=== PATIENT | male | born 1935 | race Caucasian/White ===

== ENCOUNTER → 2017-10-19 | Outpatient (CLI) | payer MEDICARE, BC ==
[~2017-10-19] MED LIST: ASPIR-LOW81 MG PO; D3 PO; FISH OIL PO; KEFLEX500 MG PO; LIPITOR20 MG PO; METOPROLOL TART25 MG PO; PROBIOTIC PO; RAPAFLO8 MG PO; VITAMIN B12 PO; VITAMIN C PO
--- NOTE | 2017-10-19 13:47 | Diagnostic Imaging Report ---
PROCEDURE: CT ABDOMEN AND PELVIS WITHOUT CONTRAST TECHNIQUE: The abdomen and pelvis were scanned utilizing a multidetector helical scanner from the diaphragm to the lesser trochanter after the oral administration of water. No intravenous contrast was administered per renal stone protocol. Coronal and sagittal multiplanar reformations were obtained. COMPARISON: 02/05/2016 INDICATIONS: CALCULUS OF KIDNEY FINDINGS: ABSENCE OF INTRAVENOUS CONTRAST DECREASES SENSITIVITY FOR DETECTION OF FOCAL LESIONS AND VASCULAR PATHOLOGY. LOWER THORAX: Unchanged reticular and fibrocalcific changes in the lung bases left greater than right. No pleural or pericardial effusion.. HEPATOBILIARY: Stable small cysts in hepatic segment 3, 8, and 7 with additional subcentimeter hypoattenuating lesions scattered throughout the liver, too small to characterize but statistically likely to also represent small cysts. 1.7 cm simple cyst in segment 6 is also unchanged. No intrahepatic biliary ductal dilatation. The gallbladder is unremarkable. SPLEEN: Subcentimeter hypoattenuating lesion in the spleen and is unchanged and may represent a small cyst. PANCREAS: No focal masses or ductal dilatation. ADRENALS: No adrenal nodules. KIDNEYS/URETERS: No renal, ureteral, or bladder calculi are appreciated. Nonspecific perinephric fat stranding, right greater than left, unchanged. No hydronephrosis. No gross renal mass lesion. PELVIC ORGANS/BLADDER: The urinary bladder is unremarkable. Coarse prostatic calcifications. PERITONEUM / RETROPERITONEUM: No ascites. No pneumoperitoneum. LYMPH NODES: No pelvic sidewall, retroperitoneal, or mesenteric lymphadenopathy. VESSELS: Atherosclerotic calcification of the abdominal aorta and major branch vessels without aneurysmal dilatation. Evaluation is otherwise limited in the absence of intravenous contrast. GI TRACT: The large bowel shows no evidence of distention or wall thickening. There are a few diverticula scattered along the descending and sigmoid colon without wall thickening or inflammatory change. The appendix is normal. Prominence of the gastric rugal folds is likely related to underdistention. No small bowel dilatation to suggest obstruction. BONES AND SOFT TISSUES: No osseous destructive lesions. Defect in the left iliac wing is likely a bone graft harvest site. Postsurgical changes of the lower lumbar spine. No focal soft tissue abnormalities. IMPRESSION: No CT evidence of urolithiasis. Previously described punctate nonobstructing right renal calculus is no longer visualized. Large bowel diverticulosis without evidence of diverticulitis. Atherosclerotic vascular disease. Dictated by: Rainer Haynes M.D. on 10/19/2017 at 13:48 Electronically approved by: Rainer Haynes M.D. on 10/19/2017 at 13:48
== END ==
LOC: CT 12:20
PROVIDERS: ATTEND Urology
DX: N20.0 Calculus of kidney (principal)
CPT/HCPCS: 74176

== ENCOUNTER → 2018-04-12 | Outpatient (CLI) | payer MEDICARE, BC ==
--- NOTE | 2018-04-12 12:14 | Diagnostic Imaging Report ---
Exam: KUB. Clinical History: Calculus of kidney Comparison: CT 10/19/2017 Findings: Frontal view of the abdomen demonstrates a nonobstructive bowel gas pattern with moderate retained stool. No definite urinary tract calcifications are seen.No acute bone abnormality. Impression: No definite urinary tract calcifications are seen. Signed by: Dr. Yadiel Douglas M.D. on 04/12/2018 12:11 PM
== END ==
LOC: RAD 11:11
PROVIDERS: ATTEND Urology
DX: N20.0 Calculus of kidney (principal)
CPT/HCPCS: 74018

== ENCOUNTER → 2019-04-08 | Outpatient (CLI) | payer MEDICARE, BC ==
--- NOTE | 2019-04-08 14:31 | Diagnostic Imaging Report ---
EXAMINATION: CHEST 2 VIEWS INDICATION: Shortness of breath COMPARISON: None FINDINGS: LINES/TUBES:None LUNGS:The lungs are well-inflated. No focal consolidation or pulmonary edema. PLEURA:No pleural effusion or pneumothorax. MEDIASTINUM:The cardiomediastinal silhouette appears normal in size and shape. Atherosclerotic calcifications of the thoracic aorta. BONES/SOFT TISSUES:No acute osseous injury. ABDOMEN:No free air under the diaphragm. IMPRESSION: No focal pneumonia or pulmonary edema. Signed by: Mirella Love MD on 04/08/2019 2:28 PM
== END ==
LOC: RAD 13:44
PROVIDERS: ATTEND Internal Medicine
DX: R06.02 Shortness of breath (principal)
CPT/HCPCS: 71046

== ENCOUNTER 2019-04-09 11:18 | Observation (INO) | payer MEDICARE, BC ==
[~2019-04-09] VITALS: Ht 170.2 cm; Wt 81.6 kg
--- OUTSIDE RECORDS SUMMARY | 2019-04-09 13:23 | XMS REPORT ---
Author Author [facility] Address Unknown Phone Unavailable Care Team Providers Care Materials Engineering Technician Name Role Phone JUDY GUILLEN Unavailable Unavailable HAMPEL, MARIA ELENA Unavailable Unavailable HALE, BRIANNA Unavailable Unavailable Problems This patient has no known problems. Allergies, Adverse Reactions, Alerts This patient has no known allergies or adverse reactions. Medications This patient has no known medications. Results Test Description Test Time Test Comments Text Results Atomic Results Result Comments CHEST 2 VIEWS 2019-04-08 14:26:00 [place] [address] Patient Name: HAYLEY ZULUAGA MR #: [id number] : 1935 Age/Sex: 83/M Req #: [id number] Adm Physician: Ordered by: JUDY GUILLEN MD Report #: [id number] Location: [facility] Room/Bed: Procedure: [id number] DX/CHEST 2 VIEWS Exam Date: 04/08/19 Exam Time: 1421 REPORT STATUS: Signed EXAMINATION: CHEST 2 VIEWS INDICATION: Shortness of breath COMPARISON: None FINDINGS: LINES/TUBES:None LUNGS:The lungs are well-inflated. No focal consolidation or pulmonary edema. PLEURA:No pleural effusion or pneumothorax. MEDIASTINUM:The cardiomediastinal silhouette appears normal in size and shape. Atherosclerotic calcifications of the thoracic aorta. BONES/SOFT TISSUES:No acute osseous injury. ABDOMEN:No free air under the diaphragm. IMPRESSION: No focal pneumonia or pulmonary edema. Signed by: Luigi Christensen MD on 04/08/2019 2:28 PM Dictated By: LUIGI CHRISTENSEN MD 27 Transcribed By: MARCY on 04/08/191427 COPY TO: JUDY GUILLEN MD ABDOMEN-1VIEW (KUB) 2018-04-12 12:08:00 [place] [address] Patient Name: HAYLEY ZULUAGA MR #: [id number] : 1935 Age/Sex: 82/M Req #: [id number] Adm Physician: Ordered by: MARIA ELENA CREWS MD Report #: [id number] Location: [facility] Room/Bed: Procedure: [id number] DX/ABDOMEN-1VIEW (KUB) Exam Date: 04/12/18 Exam Time: 1135 REPORT STATUS: Signed Exam: KUB. Clinical History: Calculus of kidney Comparison: CT 10/19/2017 Findings: Frontal view of the abdomen demonstrates a nonobstructive bowel gas pattern with moderate retained stool. No definite urinary tract calcifications are seen.No acute bone abnormality. Impression: No definite urinary tract calcifications are seen. Signed by: Dr. Yadiel Douglas M.D. on 04/12/2018 12:11 PM Dictated By: YADIEL DOUGLAS MD, MD 121 Transcribed By: MARCY on 04/12/18 121 COPY TO: MARIA ELENA CREWS MD CT ABDOMEN/PELVIS WO [place] [address] Patient Name: HAYLEY ZULUAGA MR #: [id number] : 1935 Age/Sex: 82/M Req #: [id number] [facility] Physician: Ordered by: MARIA ELENA CREWS MD Report #: [id number] Location: CT Room/Bed: Procedure: [id number] CT/CT ABDOMEN/PELVIS WO Exam Date: 10/19/17 Exam Time: 1303 REPORT STATUS: Signed PROCEDURE: CT ABDOMEN AND PELVIS WITHOUT CONTRAST TECHNIQUE: The abdomen and pelvis were scanned utilizing a multidetector helical scanner from the diaphragm to the lesser trochanter after the oral administration of water. No intravenous contrast was administered per renal stone protocol. Coronal and sagittal multiplanar reformations were obtained. COMPARISON: 02/05/2016 INDICATIONS: CALCULUS OF KIDNEY FINDINGS: ABSENCE OF INTRAVENOUS CONTRAST DECREASES SENSITIVITY FOR DETECTION OF FOCAL LESIONS AND VASCULAR PATHOLOGY. LOWER THORAX: Unchanged reticular and fibrocalcific changes in the lung bases left greater than right. No pleural or pericardial effusion.. HEPATOBILIARY: Stable small cysts in hepatic segment 3, 8, and 7 with additional subcentimeter hypoattenuating le sions scattered throughout the liver, too small to characterize but statistically likely to also represent small cysts. 1.7 cm simple cyst in segment 6 is also unchanged. No intrahepatic biliary ductal dilatation. The gallbladder is unremarkable. SPLEEN: Subcentimeter hypoattenuating lesion in the spleen and is unchanged and may represent a small cyst. PANCREAS: No focal masses or ductal dilatation. ADRENALS: No adrenal nodules. KIDNEYS/URETERS: No renal, ureteral, or bladder calculi are appreciated. Nonspecific perinephric fat stranding, right greater than left, unchanged. No hydronephrosis. No gross renal mass lesion. PELVIC ORGANS/BLADDER: The urinary bladder is unremarkable. Coarse prostatic calcifications. PERITONEUM / RETROPERITONEUM: No ascites. No pneumoperitoneum. LYMPH NODES: No pelvic sidewall, retroperitoneal, or mesenteric lymphadenopathy. VESSELS: Atherosclerotic calcification of the abdominal aorta and major branch vessels without aneurysmal dilatation. Evaluation is otherwise limited in the absence of intravenous contrast. GI TRACT: The large bowel shows no evidence of distention or wall thickening. There are a few diverticula scattered along the descending and sigmoid colon without wall thickening or inflammatory change. The appendix is normal. Prominence of the gastric rugal folds is likely related to underdistention. No small bowel dilatation to suggest obstruction. BONES AND SOFT TISSUES: No osseous destructive lesions. Defect in the left iliac wing is likely a bone graft harvest site. Postsurgical changes of the lower lumbar spine. No focal soft tissue abnormalities. IMPRESSION: No CT evidence of urolithiasis. Previously described punctate nonobstructing right renal calculus is no longer visualized. Large bowel diverticulosis without evidence of diverticulitis. Atherosclerotic vascular disease. Dictated by: Patrick Liao M.D. on 10/19/2017 at 13:48 Electronically approved by: Patrick Liao M.D. on 10/19/2017 at 13:48 Dictated By: PATRICK LIAO MD 1348 Transcribed By: JAMEE on 10/19/17 1348 COPY TO: MARIA ELENA CREWS MD MRI BRAIN [place] [address] Patient Name: HAYLEY ZULUAGA MR #: [id number] : 1935 Age/Sex: 81/M Req #: [id number] Adm Physician: Ordered by: BRIANNA HALE MD Report #: [id number] Location: MRI Room/Bed: Procedure: [id number] MRI/MRI BRAIN WOW Exam Date: 05/16/17 Exam Time: 1613 REPORT STATUS: Signed Exam: IAC-brain MRI without and with IV contrast History: Vertigo Comparison studies: None. Technique: Axial DWI and axial T2 FLAIR through the whole brain and axial T1 FLAIR and 3-D T2 with axial, coronal and sagittal reformats through the IACs. Postcontrast axial T1 FS through the whole brain and axial coronal T1 FS through the IACs. Intravenous contrast: 8 FINDINGS: Posterior Fossa: Brainstem: No abnormal signal intensity or enhancement.] Cerebellar Hemispheres: No signal abnormalities . Cerebellopontine angle cisterns: No mass. IACs: Normal nerves VII and VIII. Labyrinths: Grossly normal formation. No abnormal signal intensity or enhancement. Mastoids: No abnormal signal intensity or enhancement. Supratentorial region: Masses: None. Acute or chronic vascular insults: No acute ischemia. A few scattered T2 FLAIR hyperintense foci in the supratentorial white matter are nonspecific but most compatible with chronic small vessel ischemic changes. Ventricles: Normal in size. No hydrocephalus. Basal ganglia and thalami: No signal abnormalities. Extra- axial spaces: No mass or fluid collection. IMPRESSION: 1. Mild supratentorial chronic microvascular ischemic changes. 2. No IAC or labyrinthine abnormalities. Signed by: Dr. Patrick Mcnamara M.D. on 05/16/2017 5:16 PM Dictated By: PATRICK MCNAMARA MD 15 Transcribed By: MARCY on 05/16/171715 COPY TO: BRIANNA HALE MD
--- NOTE | 2019-04-09 13:30 | NUR ---
Patient arrived to the unit at this time via direct admit from Dr. Madrid's office. Patient arrived via wheelchair. Patient oriented to the room. Patient in no distress. Patient expresses no pain. Call parsons within reach. Bed is low and locked. All needs met at this time.
--- NOTE | 2019-04-09 15:22 | Diagnostic Imaging Report ---
EXAMINATION: CHEST SINGLE (PORTABLE) INDICATION: Coronary artery disease COMPARISON: Multiple prior chest radiograph, most recently of 04/08/2019 FINDINGS: LINES/TUBES:None LUNGS:The lungs are well-inflated. No focal consolidation or pulmonary edema. PLEURA:No pleural effusion or pneumothorax. MEDIASTINUM:The cardiomediastinal silhouette appears normal in size and shape. Atherosclerotic calcifications of the thoracic aorta. BONES/SOFT TISSUES:No acute osseous injury. ABDOMEN:No free air under the diaphragm. IMPRESSION: No focal pneumonia or pulmonary edema. Signed by: Mirella Love MD on 04/09/2019 3:19 PM
[2019-04-09 16:00] VITALS: BP 133/60
[2019-04-09 16:09] VITALS: BP 133/60
[2019-04-09 16:22] VITALS: BP 133/60
[2019-04-09 16:32] LABS: LYMPHOCYTES # (AUTO) 0.8 (1.0-3.2); LYMPHOCYTES % 55.8 % (18.0-39.1); MEAN CORPUSCULAR HEMOGLOBIN 39.1 pg (28-32); MEAN CORPUSCULAR VOLUME 115.2 fL (81-99); MONOCYTES # (AUTO) 0.1 (0.2-0.8); MONOCYTES % 7.2 % (4.4-11.3); NEUTROPHILS # (AUTO) 0.5 (2.1-6.9); RED BLOOD COUNT 1.38 x10e6/uL (4.3-5.7); RED CELL DISTRIBUTION WIDTH 17.6 % (11.7-14.4)
[2019-04-09 16:41] LABS: HEMATOCRIT 15.9 % (38.2-49.6); HEMOGLOBIN 5.4 g/dL (14.0-18.0); PLATELET COUNT 15 x10e3/uL (140-360)
--- NOTE | 2019-04-09 16:45 | NUR ---
Dr. Madrid seeing patient at this time. Educated patient on plan of care. Continued home medications. Patient's questions answered. Call parsons within reach.
[2019-04-09 16:48] LABS: ALANINE AMINOTRANSFERASE 13 IU/L (0-55); ALBUMIN 3.3 g/dL (3.5-5.0); ALBUMIN/GLOBULIN RATIO 1.1 (0.8-2.0); ALKALINE PHOSPHATASE 56 IU/L (40-150); ANION GAP 10.8 mmol/L (8-16); BLOOD UREA NITROGEN 16 mg/dL (7-26); BUN/CREATININE RATIO 18 (6-25); CARBON DIOXIDE 24 mmol/L (22-29); CHLORIDE 106 mmol/L (98-107); CREATININE, SERUM 0.87 mg/dL (0.72-1.25); EST GLOMERULAR FILTRATION RATE > 60 ML/MIN (60-); GLUCOSE 112 mg/dL (74-118); POTASSIUM 3.8 mmol/L (3.5-5.1); SODIUM 137 mmol/L (136-145)
[2019-04-09] MEDS ORDERED: SODIUM CHLORIDE 0.9% 250ML 250 ML IV ONE (17:00)
[2019-04-09] MEDS ORDERED: ACETAMINOPHEN 325 MG TAB PO PRN (17:15)
--- NOTE | 2019-04-09 17:36 | History and Physical ---
CHIEF COMPLAINT: "I feel very weak." HISTORY OF PRESENT ILLNESS: This is an 83-year-old white man, who states for the last 4-5 weeks has had worsening generalized fatigue and excessive tiredness. The patient states at times he becomes short of breath, but states that it usually occurs with exertion. The patient denies any chest pain or tightness. The patient denies any melena or hematochezia. The patient had a blood work done on April 08, 2019, which revealed a hemoglobin of 6 g/dL. The patient's hematocrit was 17.1%. The patient's white blood cell count was 1500 with 35% segmented neutrophils. The patient's platelet count was low at 17,000. The patient's BUN and creatinine were 15 and 0.77 respectively. LDL cholesterol was 35 mg/dL. The patient's TSH level was high at 11.95. Free T4 was normal at 0.9, total T3 was normal at 81. The decision was made to admit the patient directly to [facility], so he could be evaluated most efficiently. REVIEW OF SYSTEMS: GENERAL: Weight has been stable. No fever or chills. He does complain of generalized fatigue as well as lack of energy for the last for 4-5 weeks. Denies any night sweats. HEENT: No headaches. No vision changes. CARDIOVASCULAR: No chest pain. Slight shortness of breath with exertion, but no shortness of breath at rest. No cough. No hemoptysis. GI: No nausea, vomiting, diarrhea, or constipation. No melena or hematochezia. : No BPH symptoms. No UTI symptoms either. NEUROMUSCULAR: No limb weakness or numbness, but complains of generalized fatigue as previously stated. PAST MEDICAL HISTORY: 1. Coronary artery disease (coronary stent placed after myocardial infarction in 1996). 2. Benign prostatic hypertrophy with lower urinary tract symptoms. 3. Hypothyroidism. 4. Hyperlipidemia. 5. Hypertensive heart disease. PAST SURGICAL HISTORY: 1. Bilateral total knee replacement. 2. Lumbar spine fusion. 3. Coronary stent placed in 1996 after myocardial infarction. 4. Tonsillectomy. 5. TURP. SOCIAL HISTORY: This man is . Lives alone. He has 2 adult daughters, who live nearby. He is retired. The patient does not smoke tobacco, but he does drink alcohol socially, usually on the weekends. FAMILY HISTORY: Father had a stroke. Mother and brother with colon cancer. Sister with colon polyps. The patient states there is no family history of prostate cancer. ALLERGIES: NO KNOWN DRUG ALLERGIES. HOME MEDICATIONS: 1. Dover-3 fish oil 1000 mg daily. 2. Atorvastatin 20 mg at bedtime. 3. Aspirin 81 mg daily. 4. Vitamin D3 1000 units daily. 5. Zolpidem 5 mg at bedtime p.r.n. for insomnia. 6. Nattokinase 2 capsules daily. 7. Super digestive enzymes 2 capsules daily. 8. Vitamin B complex once daily. 9. Metoprolol tartrate 25 mg b.i.d. 10. Losartan 25 mg daily. PHYSICAL EXAMINATION: GENERAL: He is awake, alert, fluent, very pleasant. Does not appear to be in any obvious respiratory distress. Does not appear to be in any distress at all. VITAL SIGNS: Height is 5 feet 7 inches, weight 180 pounds, BMI 28, blood pressure is 132/60, pulse is 80, respiratory rate is 14, oxygen saturation 99% on room air, temperature 97.7. INTEGUMENT: Skin is warm and dry. He has obvious pallor. No jaundice or diaphoresis. HEENT: Anicteric sclerae. Moist mucous membranes. He has pallor conjunctivae. NECK: Supple. CARDIOVASCULAR: Distant heart sounds. Regular rate and rhythm. LUNGS: No rales. No rhonchi or wheezing. ABDOMEN: Soft. Normal bowel sounds. Nontender. No organomegaly. EXTREMITIES: No edema or deformity. No epitrochlear or supraclavicular lymphadenopathies appreciated. No edema of the legs. NEUROLOGIC: No gross focal deficits appreciated. DIAGNOSES: 1. Profound pancytopenia. 2. Coronary artery disease (coronary stent placed in 1996). 3. Hypothyroidism. PLAN: 1. Recheck complete blood count. 2. Consult Hematology. 3. Recheck TSH level. 4. Hold aspirin. 5. Hold statin therapy. 6. Hold supplements. 7. Bone marrow biopsy may be necessary. I spent 45 minutes in the care of this patient. MD ANGIE Braga/BELEM /[id number] [facility]
[2019-04-09 18:01] LABS: BAND NEUTROPHILS % (MANUAL) 2 %; BLAST CELLS % MANUAL 2; LYMPHOCYTES % (MANUAL) 54 % (19-48); MONOCYTES % (MANUAL) 2 % (3.4-9.0); NEUTROPHILS % (MANUAL) 40 % (40-74)
[2019-04-09 18:02] LABS: ANISOCYTOSIS SLIGHT; HYPOCHROMASIA MODERATE; PLATELET ESTIMATE MODERATELY DECREASED; PLATELET MORPHOLOGY COMMENT NORMAL; POIKILOCYTOSIS SLIGHT; RBC MORPHOLOGY COMMENT NORMAL
--- NOTE | 2019-04-09 19:20 | NUR ---
Received patient awake, family at the bedside, call light within easy reach. No complaints of pain at this time. Will continue to monitor
--- NOTE | 2019-04-09 20:11 | NUR ---
patient signed the consent for blood transfusion
[2019-04-09 20:20] VITALS: BP 122/55
[2019-04-09] MEDS ORDERED: SODIUM CHLORIDE 0.9% 250ML 250 ML ONE (20:56)
[2019-04-09 21:00] VITALS: BP 122/55
[2019-04-09] MEDS ORDERED: FILGRASTIM 300 MCG/ML VIAL SC SCH (21:00)
[2019-04-09] MEDS ORDERED: ZOLPIDEM TARTRATE 5 MG TAB PO PRN (21:00)
[2019-04-09] MEDS ORDERED: SODIUM CHLORIDE 0.9% 250ML 500 ML ONE (23:04)
[2019-04-10 00:52] VITALS: BP 131/60
[2019-04-10 05:05] VITALS: BP 119/59
[2019-04-10 05:07] VITALS: BP 119/59
--- NOTE | 2019-04-10 05:45 | NUR ---
blood transfusion completed, no transfusion reaction noted. patient tolerated well
--- NOTE | 2019-04-10 06:20 | NUR ---
Dr. Madrid seen pt
[2019-04-10] MEDS ORDERED: BISACODYL 5 MG TAB EC PO ONE (06:45)
--- NOTE | 2019-04-10 06:45 | NUR ---
rounded with police shift commander nurse. patient alert and oriented, in no distress. call parsons within reach and bed in lowest position.
[2019-04-10 08:00] VITALS: BP 112/55
[2019-04-10 08:40] VITALS: BP 112/55
[2019-04-10 08:43] LABS: BASOPHILS % 0.8 % (0.0-1.0); HEMATOCRIT 22.6 % (38.2-49.6); HEMOGLOBIN 7.9 g/dL (14.0-18.0); LYMPHOCYTES % 40.3 % (18.0-39.1); MEAN CORPUSCULAR HEMOGLOBIN 35.3 pg (28-32); MEAN CORPUSCULAR VOLUME 100.9 fL (81-99); MONOCYTES # (AUTO) 0.1 (0.2-0.8); MONOCYTES % 4.7 % (4.4-11.3); NEUTROPHILS # (AUTO) 1.2 (2.1-6.9); NEUTROPHILS % 52.5 % (38.7-80.0); RED BLOOD COUNT 2.24 x10e6/uL (4.3-5.7); RED CELL DISTRIBUTION WIDTH 23.9 % (11.7-14.4)
[2019-04-10 09:05] LABS: PLATELET COUNT 46 x10e3/uL (140-360)
[2019-04-10 09:17] LABS: ANION GAP 12.9 mmol/L (8-16); BLOOD UREA NITROGEN 14 mg/dL (7-26); BUN/CREATININE RATIO 18 (6-25); CALCIUM 9.2 mg/dL (8.4-10.2); CARBON DIOXIDE 24 mmol/L (22-29); CHLORIDE 106 mmol/L (98-107); CREATININE, SERUM 0.79 mg/dL (0.72-1.25); EST GLOMERULAR FILTRATION RATE > 60 ML/MIN (60-); GLUCOSE 101 mg/dL (74-118); POTASSIUM 3.9 mmol/L (3.5-5.1); SODIUM 139 mmol/L (136-145)
[2019-04-10 10:45] LABS: LYMPHOCYTES % (MANUAL) 39 % (19-48); MONOCYTES % (MANUAL) 6 % (3.4-9.0); NEUTROPHILS % (MANUAL) 55 % (40-74); PLATELET ESTIMATE MARKEDLY DECREASED
[2019-04-10 10:46] LABS: PLATELET MORPHOLOGY COMMENT FEW LARGE; RBC MORPHOLOGY COMMENT NORMAL
--- NOTE | 2019-04-10 11:44 | NUR ---
[facility] letter delivered and explained to pt. Signed copy in chart. Copy to pt.
--- NOTE | 2019-04-10 13:10 | NUR ---
patient alert and oriented. discharge instructions given at this time, patient verbalized understanding. IV discontinued, catheter in tact and small dressing applied. patient refused wheelchair assistance but will ambulate to personal auto for daughter to drive home.
--- NOTE | 2019-04-10 16:42 | Consultation ---
DATE OF CONSULTATION: 04/10/2019 REASON FOR CONSULTATION: Pancytopenia and anemia. HISTORY OF PRESENT ILLNESS: An 83-year-old gentleman with past medical history include coronary artery disease, BPH, hypothyroidism, hyperlipidemia, hypertension, history of arthritis required bilateral total knee replacement, and lumbar spine fusion, admitted with worsening generalized fatigue, weakness, and tiredness. The patient was followed by a primary care physician. He had workup done, which shows severe pancytopenia and anemia. The patient currently in hospital for further management. The patient disorder. No history of exposure to benzene, radiation, or chemo in the past. At admission, the patient's blood work shows hemoglobin was 5, white cell was 1.9, and platelet count was 415. Peripheral smear shows macrocytosis, abnormal cells include blasts. The patient had leukemia/lymphoma panel placed, flow cytometry of peripheral blood, and after that he received blood transfusion, Neupogen treatment, and platelet transfusion. Symptomatically, condition has improved. The patient otherwise doing okay. PAST MEDICAL HISTORY: Includes coronary artery disease status post cardiac stent, benign prostatic hypertrophy, hypothyroidism, hyperlipidemia, and hypertension. PAST SURGICAL HISTORY: Bilateral total knee replacement, lumbar spine fusion, and coronary artery disease. SOCIAL HISTORY: No smoking, alcohol, or drugs. The patient is currently retired. FAMILY HISTORY: No positive family history of any blood disorder. The patient had positive family history of colon cancer. ALLERGIES: NKDA. MEDICATIONS: List reviewed. REVIEW OF SYSTEMS: A 12-point review as per HPI. PHYSICAL EXAMINATION: GENERAL: Alert, awake, and communicative. HEENT: Normocephalic and atraumatic. Sclerae pale. Conjunctiva clear. NECK: Supple. CHEST: Decreased breath sounds at bases. ABDOMEN: Soft. CARDIOVASCULAR: Regular rate and rhythm. EXTREMITIES: No edema. LABORATORY AND IMAGING DATA: Reviewed. ASSESSMENT AND PLAN: The patient with history of multiple medical conditions, admitted for the following. Profound pancytopenia and anemia. 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 Flow cytometry of peripheral blood with leukemia/lymphoma panel is already requested. The patient already received blood transfusion, Neupogen, and platelet. Counts have improved. RECOMMENDATIONS: We will follow leukemia/lymphoma panel. We will do coagulation profile. Bone marrow biopsy for total percentage of blasts with cytogenetic. Further recommendation and treatment after complete workup. Continue symptomatic management include as needed transfusion. We will follow the patient very closely. MD KERMIT Steen/BELEM /[id number]
--- NOTE | 2019-04-11 10:09 | NUR ---
Dictated DC summary: [id number]
--- NOTE | 2019-04-11 10:53 | Discharge Summary ---
ADMITTING DIAGNOSES: Profound pancytopenia and anemia. DISCHARGE DIAGNOSIS: Pancytopenia, improving. HOSPITAL COURSE: This is an 83-year-old white man, who was initially admitted to [facility] with diagnosis of profound cytopenia. On admission, he was found to have hemoglobin of 5.4 g. The patient's white blood cell count was 1300 with 40% neutrophils and 2% bands. The patient's lymphocytes were 54%. Also on admission platelet count was 15,000. During this hospitalization, the patient was seen by hotel assistant manager, namely Dr. Terell Martinez. The patient received one dose of filgrastim 300 mcg subcutaneously once during this hospitalization. Also during this hospitalization, the patient was transfused 2 units of packed red blood cells. Moreover, during this hospital stay, the patient was transfused one jumbo pack of platelets, which he tolerated well. The patient's brief hospitalization was unremarkable. He did undergo Hemoccult stool during this hospitalization, which was positive. Thus, aspirin was held. The hotel assistant manager, namely Dr. Terell Martinez stated that the peripheral smear performed during this hospitalization revealed findings consistent with either myelodysplastic syndrome with high blasts or acute myeloid leukemia. A flow cytometry of peripheral blood with leukemia/lymphoma panel was sent, but the results were still pending during this hospitalization. The patient's condition on discharge was stable with an overall guarded prognosis. DISCHARGE MEDICATIONS: None. DISCHARGE INSTRUCTIONS: The patient was instructed to stop atorvastatin and aspirin. FOLLOWUP: 1. The patient was instructed to follow up with Dr. Terell Martinez on , April 11, 2019. 2. The patient was instructed to follow up with his primary care physician, namely myself, Dr. Shadi Madrid in two weeks. MD MICHAEL BragaO/BELEM /[id number] cc: Terell Martinez MD
== END 2019-04-10 13:13 | disposition home or self-care (01) ==
LOC: MED/SURG2 13:19
PROVIDERS: ADMIT Internal Medicine; ATTEND Internal Medicine
DX: D61.818 Other pancytopenia (principal); D64.9 Anemia, unspecified; I25.10 Atherosclerotic heart disease of native coronary artery without angina pectoris; Z95.5 Presence of coronary angioplasty implant and graft; N40.0 Benign prostatic hyperplasia without lower urinary tract symptoms; E03.9 Hypothyroidism, unspecified; E78.5 Hyperlipidemia, unspecified; I10 Essential (primary) hypertension; Z96.653 Presence of artificial knee joint, bilateral; I11.9 Hypertensive heart disease without heart failure
CPT/HCPCS: 36415 ×2; 71045; 80048; 80053; 82270; 83615; 85025 ×2; 86850; 86900; 86920; 86945; 88184; 93005; G0378 ×2; J1442; J7050; P9016 ×2; P9034